=== PATIENT | male | born 2000 | race African-American/Black ===

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

== ENCOUNTER 2020-03-31 17:40 | Emergency (ER) | payer MEDICAID ==
[~2020-03-31] VITALS: Ht 188 cm; Wt 77.1 kg
[2020-03-31 17:37] VITALS: BP 128/78
[2020-03-31] MEDS ORDERED: ZITHROMAX250 MG ORAL (18:05)
--- NOTE | 2020-03-31 18:05 | Emergency Room Report ---
History of Present Illness General Chief Complaint: Sore Throat Source: Patient Present Illness HPI 19-year-old male with hospital history brought in by paramedics due to 2 days of fever and 10 out of 10 sore throat. Denies any cough or congestion, shortness of breath, abdominal pain, nausea vomiting diarrhea, loss of taste or smell. Reports that he has only been drinking liquids and is unable to swallow solid food due to pain. Speaking in full sentences. Appears to have temperature of 102 F upon arrival and has not taken medication for symptom relief. Denies any recent travel. Reports that he recently got tested for cold and tested negative. Allergies: Coded Allergies: No Known Allergies (Unverified , 12/21/14) COVID-19 Screening Contact w/high risk pt: No Experienced COVID-19 symptoms?: Yes COVID-19 Testing performed [employer]: No Patient History Past Medical History: see triage record Past Surgical History: none Pertinent Family History: none Immunizations: UTD Reviewed Nursing Documentation: PMH: Agreed; PSxH: Agreed Nursing Documentation-PMH Past Medical History: No Stated History Review of Systems All Other Systems: negative except mentioned in HPI Physical Exam Vital Signs Date Time Temp Pulse Resp B/P (MAP) Pulse Ox O2 Delivery O2 Flow Rate FiO2 03/31/20 17:34 102.0 90 16 128/78 (95) 98 Room Air Sp02 EP Interpretation: reviewed, normal Head: normocephalic, atraumatic Eyes: bilateral eye normal inspection, bilateral eye PERRL ENT: tonsillar swelling, pharyngeal erythema, tonsillar exudate Neck: full range of motion, supple/symm/no masses Respiratory: chest non-tender, lungs clear, normal breath sounds, speaking full sentences Cardiovascular #1: regular rate, rhythm, no edema Gastrointestinal: normal bowel sounds, non tender, soft, non-distended, no guarding, no rebound Musculoskeletal: back normal Neurologic: alert, motor strength/tone normal, oriented x3, sensory intact, responsive, speech normal Psychiatric: judgement/insight normal, memory normal, mood/affect normal, no suicidal/homicidal ideation Skin: no rash Lymphatic: adenopathy - Anterior cervical lymphadenopathy Medical Decision Making PA Attestation All diagnosis and treatment plans were discussed and reviewed by my supervising physician Dr. Rosales Diagnostic Impression: Primary Impression: Strep pharyngitis ER Course 19-year-old male with hospital history brought in by paramedics due to 2 days of fever and 10 out of 10 sore throat. Denies any cough or congestion, shortness of breath, abdominal pain, nausea vomiting diarrhea, loss of taste or smell. Reports that he has only been drinking liquids and is unable to swallow solid food due to pain. Speaking in full sentences. Appears to have temperature of 102 F upon arrival and has not taken medication for symptom relief. Denies any recent travel. Reports that he recently got tested for cold and tested negative. Ddx considered but are not limited to: strep pharyngitis, URI, tonsillitis, peritonsillar abscess, influneza, coronavirus Vital signs: are WNL, pt. is afebrile H&PE are most consistent with: strep pharyngitis ORDERS: Augmentin, ibuprofen ED INTERVENTIONS: None required at this time. DISCHARGE: At this time pt. is stable for d/c to home. Will provide printed patient care instructions, and any necessary prescriptions. Care plan and follow up instructions have been discussed with the patient prior to discharge. Patient take medication as directed, follow primary care provider, get tested for covert, worsening symptom return to the emergency room Last Vital Signs Date Time Temp Pulse Resp B/P (MAP) Pulse Ox O2 Delivery O2 Flow Rate FiO2 03/31/20 17:37 102.0 90 16 128/78 98 Room Air Disposition: HOME, SELF-CARE Condition: Stable Scripts Azithromycin* (ZITHROMAX*) 250 Mg Tablet 250 MG ORAL DAILY, #6 TAB 0 Refills Take two tables once daily for 1 day, then one tablet once daily for 4 days. Prov: Carmelo Rust 03/31/20 Patient Instructions: Strep Throat Additional Instructions: Take medication as directed, follow primary care provider, worsening symptoms return the emergency room Carmelo Rust Mar 31, 2020 18:05
[2020-03-31 18:15] VITALS: BP 118/72
--- NOTE | 2020-04-01 11:49 | Diagnostic Imaging Report ---
Procedure: XRAY Chest 1v Reason for study: Shortness of breath. Comparison films: None. FINDINGS: A single one view chest is obtained. Vascularity is normal. The lung crury are clear bilaterally. Cardiac and mediastinal silhouette are within normal limits. CP angles are sharp. The bony thorax appear unremarkable. IMPRESSION: NO ACUTE CARDIOPULMONARY DISEASE.
== END 2020-03-31 18:15 | disposition home or self-care (01) ==
LOC: EDBD 17:40 → EMR 17:50
DX: J02.0 Streptococcal pharyngitis (principal)
CPT/HCPCS: 71045; Z7502; 99283